=== PATIENT | male | born 1985 | race Hispanic/Latino ===

== ENCOUNTER 2017-05-21 15:04 | Observation (INO) | payer OTHER ==
[~2017-05-21] VITALS: Ht 190.5 cm; Wt 115.7 kg
--- NOTE | 2017-05-21 16:22 | ED GI/GU/ABDOMINAL COMPLAINT ---
History of Present Illness General Chief Complaint: Abdominal Pain/Flank Pain Stated Complaint: LWR ABD PAIN SINCE LAST NIGHT Source: patient Exam Limitations: no limitations Vital Signs & Intake/Output Vital Signs & Intake/Output Vital Signs Date Time Temp Pulse Resp B/P B/P Pulse O2 O2 Flow FiO2 Mean Ox Delivery Rate 05/22 0651 98.4 72 18 122/70 95 Room Air 05/22 0300 97.9 74 18 122/70 94 Room Air 05/22 0100 98.4 78 18 120/60 95 Room Air 05/21 2300 98.2 67 18 138/84 97 Room Air 05/21 2045 98.1 76 16 142/80 98 Room Air Room Air ED Intake and Output 05/22 0000 05/21 1200 Intake Total 3000 Output Total Balance 3000 Intake, IV 3000 Patient 255 lb Weight Weight Reported by Patient Measurement Method Allergies Coded Allergies: No Known Allergies (05/21/17) Triage Note: PT STATES HE BEGAN TO HAVE SHARP PAIN IN HIS LOWER RIGHT ABD SINCE LAST AL. AND IT HAS NOT GONE AWAY. PT STATES HE MOVED HIS BOWELS YESTERADAY ABD HE HASN'T GONE YET TODAY. PT STATE HE DID HAVE THE CHILLS LAST EVENING AND TODAY HE HASN'T EATEN ANYTHING. Triage Nurses Notes Reviewed? yes Onset: Gradual Duration: day(s): Timing: recent history Quality/Severity: moderate, sharpness Location: right lower quadrant HPI: 31-year-old male presents emergency department complaining of right lower quadrant abdominal pain. Patient states that yesterday he had periumbilical abdominal pain described as crampy. Today pain feels sharp or, more severe, located in right lower quadrant. Patient states his last bowel movement was 3 days ago. Patient reports anorexia. Patient denies previous surgeries, diarrhea, nausea, vomiting, fevers, chills, urinary symptoms. (Aleksandra WISE,Alexia Pierre) Reconcile Medications Oxycodone HCl/Acetaminophen (Percocet 5-325 MG Tablet) 5 MG-325 MG TABLET 1-2 TAB PO 4 TIMES/DAY PRN pain (Puja PETERSEN,Kyle Huerta) Past History Travel History Traveled to [place] past 21 day No Medical History Any Pertinent Medical History? none Surgical History Surgical History: none Psychosocial History What is your primary language Mongolian Tobacco Use: Never used ETOH Use: occasional use Illicit Drug Use: denies illicit drug use Family History Hx Contributory? No (Alexia Kincaid) Review of Systems Review of Systems Constitutional: Reports: no symptoms. EENTM: Reports: no symptoms. Respiratory: Reports: no symptoms. Cardiovascular: Reports: no symptoms. GI: Reports: see HPI. Genitourinary: Reports: no symptoms. Musculoskeletal: Reports: no symptoms. Skin: Reports: no symptoms. Neurological/Psychological: Reports: no symptoms. Hematologic/Endocrine: Reports: no symptoms. Immunologic/Allergic: Reports: no symptoms. All Other Systems: Reviewed and Negative (Aleksandra WISE,Alexia Pierre) Physical Exam Physical Exam General Appearance: well developed/nourished, no apparent distress, alert, awake Head: atraumatic, normal appearance Eyes: Bilateral: normal appearance. Ears, Nose, Throat, Mouth: hearing grossly normal Neck: normal inspection, supple, full range of motion Respiratory: normal breath sounds, no respiratory distress, lungs clear Cardiovascular: regular rate/rhythm Gastrointestinal: normal bowel sounds, soft, no organomegaly, RLQ rebound tenderness with gaurding, +McBurney's point tenderness, +Rosving's sign Back: normal inspection, normal range of motion Extremities: normal range of motion Neurologic/Psych: awake, alert, oriented x 3 Skin: intact, normal color, warm/dry Core Measures ACS in differential dx? No Sepsis Present: No Sepsis Focused Exam Completed? No (Alexia Kincaid) Progress Differential Diagnosis: appendicitis, bowel obstruction, cholecystitis, diverticulitis, gastritis, hepatitis, hernia, inflamm bowel dis, peptic ulcer, SBO Plan of Care: Orders Procedure Date/time Status Regular Diet 05/22 B Active Wound Care/Dressing 05/222 Active Discharge Patient 05/22 UNK Active Clear Liquid Diet 05/21 D Complete Vital Signs 05/21 2306 Active Teach/Educate 05/21 2306 Active Pain Treatment and Response 05/21 2306 Active Nutritional Intake, Monitor 05/21 2306 Active Isolation 05/21 2306 Active Intake & Output 05/21 2306 Active Patient Care Conference 05/21 2306 Active Activity/Ambulation 05/21 2306 Active Pathway - chart 05/[address] in observation 05/21 2202 Active Patient Data 05/21 2202 Active Code Status 05/21 2202 Active PATHOLOGY SPECIMEN 05/21 2130 Complete PARTIAL THROMBOPLASTIN TIME 05/21 2031 Complete PROTHROMBIN TIME 05/21 2031 Complete TYPE & SCREEN (NOT X-MATCH) 05/21 2031 Complete Intake & Output 05/21 1651 Complete VTE Mechanical Prophylaxis 05/21 UNK Active Vital Signs 05/21 UNK Active Nursing Misc 05/21 UNK Active Intake & Output 05/21 UNK Active Activity/Ambulation 05/21 UNK Active Laboratory Tests 05/21/172039: PT 12.7 H, INR 1.21 H, APTT 28 Spoke with radiologist - appendicitis without perforation. The patient was started on second liter of IV fluids, IV Unasyn, pending general surgery consult. Discussed this patient with Dr. Luo. 2020 - Spoke with Dr. Murrell regarding patient. Surgical PA present to see and evaluate patient. Diagnostic Imaging: Viewed by Me: CT Scan. Discussed w/RAD: CT Scan. Radiology Impression: PATIENT: SIS MCDONALD PRESENT AGE: 31 PATIENT ACCOUNT NO: [id number] : 84 LOCATION: [facility] ORDERING PHYSICIAN: Alexia WISE SERVICE DATE: 05/21/17 EXAM TYPE: CAT - CT ABD & PELVIS W IV CONTRAST EXAMINATION: CT ABDOMEN AND PELVIS WITH CONTRAST CLINICAL INFORMATION: Abdominal pain COMPARISON: None TECHNIQUE: Multidetector volumetric imaging was performed of the abdomen and pelvis following IV administration of 94 mL of Optiray 320 intravenous contrast. Sagittal and coronal reformatted images were obtained on the technologist's workstation. DLP: 967.94 mGy-cm FINDINGS: LUNG BASES: There is mild atelectatic changes in the posterior right lung base. The visualized lung bases are otherwise clear. No pleural effusion. LIVER, GALLBLADDER, AND BILIARY TREE: The liver is normal in size, shape, and attenuation. No focal hepatic lesion or biliary ductal dilatation is present. The gallbladder is unremarkable with no evidence of radiopaque gallstones, gallbladder wall thickening, or obvious pericholecystic inflammatory changes. PANCREAS: Unremarkable. SPLEEN: Unremarkable. ADRENAL GLANDS: Unremarkable. KIDNEYS AND URETERS: The kidneys are normal in size, shape , and attenuation. No hydronephrosis, hydroureter, or calculi seen. No perinephric stranding. BLADDER: Unremarkable. GASTROINTESTINAL TRACT: The small and large bowel are unremarkable. The appendix is visualized. The lumen of the appendix is dilated, measures about 1.4 cm in transverse diameter. There are mild inflammatory changes surrounding the appendix. The findings are in favor of acute inflammatory appendicitis. No CT sign of perforation or periappendiceal fluid collection. No free fluid in the abdomen or pelvis. There is an area of mesenteric fat stranding in the anterior right upper quadrant of the abdomen, better seen on axial image 47 from series 2 and sagittal image 96. The findings could represent mesenteritis. ABDOMINAL WALL: No significant hernia is appreciated. LYMPH NODES: Normal. VASCULAR: Unremarkable. PELVIC VISCERA: The prostate and seminal vesicles are unremarkable. OSSEOUS STRUCTURES: Unremarkable. IMPRESSION: Findings of acute inflammatory appendicitis without evidence of perforation or periappendiceal collection. The findings were reported to Alexia Lake at 5:50 PM on 05/21/2017 by myself. DICTATED BY: Micki Minor MD DATE/TIME DICTATED:05/21/171744 SLURRY CONTROL TENDER:[facility] DATE/TIME TRANSCRIBED:05/21/171744 CONFIDENTIAL, DO NOT COPY WITHOUT APPROPRIATE AUTHORIZATION. <Electronically signed in Other Vendor System> SIGNED BY: Micki Minor MD 05/21/17 1801 Initial ED EKG: none (Alexia Kincaid) Departure Departure Disposition: STILL A PATIENT Condition: Stable Clinical Impression Primary Impression: Appendicitis Qualifiers: Appendicitis type: acute appendicitis Acute appendicitis type: with localized peritonitis Qualified Code: K35.3 - Acute appendicitis with localized peritonitis Referrals: Patient Has No Primary Care Dr (PCP/Family) Departure Forms: Customer Survey General Discharge Information OR/GI Note Spoke With: Handy PETERSEN,Javon Alves ED Treatment Decision: SIS MCDONALD requires urgent operative management or an emergent procedure that cannot be performed in the Emergency Room setting. APPENDICITIS Transport To: [facility] (Alxeia Kincaid) Departure Prescriptions: Current Visit Scripts Oxycodone HCl/Acetaminophen (Percocet 5-325 MG Tablet) 1-2 TAB PO 4 TIMES/DAY PRN pain #30 TAB PA/CANARY BREEDER Co-Sign Statement Statement: ED Attending supervision documentation- [X] I saw and evaluated the patient. I have also reviewed all the pertinent lab results and diagnostic results. I agree with the findings and the plan of care as documented in the PA's/CANARY BREEDER's documentation. [X] I have reviewed the ED Record and agree with the PA's/CANARY BREEDER's documentation. [] Additions or exceptions (if any) to the PAs/CANARY BREEDER's note and plan are summarized below: [Periumbilical pain that radiates up to the right lower quadrant. White count as well as high sensitivity CRP. CAT scan consistent with appendicitis.] (Puja PETERSEN,Kyle Huerta)
[2017-05-21 16:48] LABS: ABSOLUTE BASOPHIL COUNT 0.1 /CUMM (0.0-0.2); ABSOLUTE EOSINOPHIL COUNT 0.2 /CUMM (0.0-0.7); ABSOLUTE GRANULOCYTE CT 10.8 /CUMM (1.4-6.5); ABSOLUTE LYMPH COUNT 2.3 /CUMM (1.2-3.4); BASOPHIL % 0.9 % (0.0-2.0); EOSINOPHIL % 1.1 % (0-5); HEMATOCRIT 43.4 % (42-52); MEAN CORPUSCULAR HGB 27.3 PG (27.0-31.0); MEAN CORPUSCULAR VOLUME 82.8 FL (80.0-94.0); MEAN PLATELET VOLUME 8.3 FL (7.4-10.4); PLATELET COUNT 292 /CUMM (130-400); RBC DISTRIBUTION WIDTH 14.2 % (11.5-14.5); RED BLOOD CELL CT 5.24 /CUMM (4.70-6.10); WHITE BLOOD CELL COUNT 14.4 /CUMM (4.8-10.8)
--- NOTE | 2017-05-21 18:01 | CT SCAN REPORT ---
EXAMINATION: CT ABDOMEN AND PELVIS WITH CONTRAST CLINICAL INFORMATION: Abdominal pain COMPARISON: None TECHNIQUE: Multidetector volumetric imaging was performed of the abdomen and pelvis following IV administration of 94 mL of Optiray 320 intravenous contrast. Sagittal and coronal reformatted images were obtained on the technologist's workstation. DLP: 967.94 mGy-cm FINDINGS: LUNG BASES: There is mild atelectatic changes in the posterior right lung base. The visualized lung bases are otherwise clear. No pleural effusion. LIVER, GALLBLADDER, AND BILIARY TREE: The liver is normal in size, shape, and attenuation. No focal hepatic lesion or biliary ductal dilatation is present. The gallbladder is unremarkable with no evidence of radiopaque gallstones, gallbladder wall thickening, or obvious pericholecystic inflammatory changes. PANCREAS: Unremarkable. SPLEEN: Unremarkable. ADRENAL GLANDS: Unremarkable. KIDNEYS AND URETERS: The kidneys are normal in size, shape, and attenuation. No hydronephrosis, hydroureter, or calculi seen. No perinephric stranding. BLADDER: Unremarkable. GASTROINTESTINAL TRACT: The small and large bowel are unremarkable. The appendix is visualized. The lumen of the appendix is dilated, measures about 1.4 cm in transverse diameter. There are mild inflammatory changes surrounding the appendix. The findings are in favor of acute inflammatory appendicitis. No CT sign of perforation or periappendiceal fluid collection. No free fluid in the abdomen or pelvis. There is an area of mesenteric fat stranding in the anterior right upper quadrant of the abdomen, better seen on axial image 47 from series 2 and sagittal image 96. The findings could represent mesenteritis. ABDOMINAL WALL: No significant hernia is appreciated. LYMPH NODES: Normal. VASCULAR: Unremarkable. PELVIC VISCERA: The prostate and seminal vesicles are unremarkable. OSSEOUS STRUCTURES: Unremarkable. IMPRESSION: Findings of acute inflammatory appendicitis without evidence of perforation or periappendiceal collection. The findings were reported to Alexia Lake at 5:50 PM on 05/21/2017 by myself.
--- NOTE | 2017-05-21 20:43 | History & Physical Pre-Op ---
Gallo Meek 05/21/172035: General Information and HPI MD Statement: I have seen and personally examined SIS TRUJILLO and documented this H&P. The patient is a 31 year old M who presented with a patient stated chief complaint of abdominal pain []. Source of Information: patient Exam Limitations: no limitations History of Present Illness: Mr. Trujillo is a 31-year-old [employer] room in in [place] who presents with right lower quadrant abdominal pain since yesterday. He states that the pain initially started periumbilical and has now migrated to the right lower quadrant. He denies nausea or vomiting. And has had no change in bowel or bladder or bladder habits. He complains of chills at home but did not take his temperature. He has never had pain like this before and he is generally healthy. CAT scan taken today demonstrates acute appendicitis. Allergies/Medications Allergies: Coded Allergies: No Known Allergies (05/21/17) Home Med list No Known Home Medications Past History Surgical History Pertinent Surgical History: none Past Family/Social History Psychosocial History ETOH Use: occasional use Illicit Drug Use: denies illicit drug use Exam & Diagnostic Data Last 24 Hrs of Vital Signs/I&O Vital Signs Date Time Temp Pulse Resp B/P B/P Pulse O2 O2 Flow FiO2 Mean Ox Delivery Rate 05/21 1653 98 Room Air 05/21 1520 97.6 83 18 141/78 97 Room Air Intake & Output 05/21 1600 05/21 0800 05/21 0000 Intake Total Output Total Balance Patient 255 lb Weight Weight Reported by Patient Measurement Method Physical Exam General Appearance Alert, Oriented X3 HEENT PERRLA Cardiovascular Regular Rate, Normal S1, Normal S2 Lungs Clear to Auscultation, Normal Air Movement Abdomen rlq abd pain to palpation at McBurney's point, +Rovsing's sign. +bs, softly distended. Neurological Strength at 5/5 X4 Ext Extremities No Edema, Normal Pulses Last 24 Hrs of Labs/Maxi: Laboratory Tests 05/21/17 1630: Anion Gap 11, Estimated GFR > 60, BUN/Creatinine Ratio 16.7, Glucose 97, Lactic Acid 1.0, Calcium 9.3, Total Bilirubin 0.3, AST 22, ALT 40, Alkaline Phosphatase 68, C-Reactive Prot, Quant 3.9 H, C-React Prot High Sens > 15.0 H, Total Protein 7.6, Albumin 4.2, Globulin 3.4, Albumin/Globulin Ratio 1.2, CBC w Diff NO MAN DIFF REQ, RBC 5.24, MCV 82.8, MCH 27.3, RDW 14.2, MPV 8.3, Gran % 75.0, Lymphocytes % 16.1 L, Monocytes % 6.9, Eosinophils % 1.1, Basophils % 0.9, Absolute Granulocytes 10.8 H, Absolute Lymphocytes 2.3, Absolute Monocytes 1.0 H, Absolute Eosinophils 0.2, Absolute Basophils 0.1, PUBS MCHC 33.0, ESR Westergren 10 05/21/17 1523: Urine Color YEL, Urine Clarity CLEAR, Urine pH 6.0, Ur Specific Wilsey 1.010, Urine Protein NEG, Urine Ketones NEG, Urine Nitrite NEG, Urine Bilirubin NEG, Urine Urobilinogen 0.2, Ur Leukocyte Esterase NEG, Ur Microscopic EXAM NOT REQUIRED, Urine Hemoglobin NEG, Urine Glucose NEG Diagnostic Data Other Results SERVICE DATE: 05/21/17-1620 EXAM TYPE: CAT - CT ABD & PELVIS W IV CONTRAST EXAMINATION: CT ABDOMEN AND PELVIS WITH CONTRAST CLINICAL INFORMATION: Abdominal pain COMPARISON: None TECHNIQUE: Multidetector volumetric imaging was performed of the abdomen and pelvis following IV administration of 94 mL of Optiray 320 intravenous contrast. Sagittal and coronal reformatted images were obtained on the technologist's workstation. DLP: 967.94 mGy-cm FINDINGS: LUNG BASES: There is mild atelectatic changes in the posterior right lung base. The visualized lung bases are otherwise clear. No pleural effusion. LIVER, GALLBLADDER, AND BILIARY TREE: The liver is normal in size, shape, and attenuation. No focal hepatic lesion or biliary ductal dilatation is present. The gallbladder is unremarkable with no evidence of radiopaque gallstones, gallbladder wall thickening, or obvious pericholecystic inflammatory changes. PANCREAS: Unremarkable. SPLEEN: Unremarkable. ADRENAL GLANDS: Unremarkable. KIDNEYS AND URETERS: The kidneys are normal in size, shape, and attenuation. No hydronephrosis, hydroureter, or calculi seen. No perinephric stranding. BLADDER: Unremarkable. GASTROINTESTINAL TRACT: The small and large bowel are unremarkable. The appendix is visualized. The lumen of the appendix is dilated, measures about 1.4 cm in transverse diameter. There are mild inflammatory changes surrounding the appendix. The findings are in favor of acute inflammatory appendicitis. No CT sign of perforation or periappendiceal fluid collection. No free fluid in the abdomen or pelvis. There is an area of mesenteric fat stranding in the anterior right upper quadrant of the abdomen, better seen on axial image 47 from series 2 and sagittal image 96. The findings could represent mesenteritis. ABDOMINAL WALL: No significant hernia is appreciated. LYMPH NODES: Normal. VASCULAR: Unremarkable. PELVIC VISCERA: The prostate and seminal vesicles are unremarkable. OSSEOUS STRUCTURES: Unremarkable. IMPRESSION: Findings of acute inflammatory appendicitis without evidence of perforation or periappendiceal collection. The findings were reported to Alexia Lake at 5:50 PM on 05/21/2017 by myself. DICTATED BY: Micki Minor MD DATE/TIME DICTATED:05/21/171744 PHYSICIAN LOCUMS URGENT CARE:[facility] DATE/TIME TRANSCRIBED:05/21/171744 Assessment/Plan Assessment/Plan: Mr. Trujillo is a 31-year-old male with sudden onset of periumbilical abdominal pain that has now migrated to the right lower quadrant. CAT scan taken today demonstrates acute appendicitis. After examination in the emergency room with Dr. Murrell it was determined that the patient would require laparoscopic appendectomy to remove his appendix this evening. Plan Unasyn 3 g has been given at 1835 Nothing by mouth now, IV fluids To the operating suite this evening for laparoscopic appendectomy. As Ranked By This Provider Problem List: 1. Appendicitis Javon Murrell MD 05/21/17 2141: Attending MD Review Statement Attending Statement Attending MD Statement: examined this patient, discuss w/resident/PA/GIS MANAGER, reviewed images Attending Assessment/Plan: Agree with above. This is a healthy 31-year-old male who presents with classic progression of symptoms for acute appendicitis. He has focal peritonitis in the right lower quadrant and CT scan confirms the diagnosis. He'll be taken to the operating room for laparoscopic appendectomy. Preoperative broad-spectrum antibiotics were given. Anticipate discharge home in the morning pending intraoperative findings.
--- NOTE | 2017-05-21 20:44 | Admission Core Measures ---
Acute Coronary Syndrome (CM) ACS Core Measures Acute Coronary Syndrome Diagnosis No Congestive Heart Failure (NEW) CHF Core Measures Congestive Heart Failure Diagnosis No Cerebrovascular Accident (NEW) CVA Core Measures CVA/TIA Diagnosis No Venous Thromboembolism VTE Core Kenn[place] (View Protocol) VTE Risk Factors No risk factors No Mechanical VTE Prophylaxis d/t N/A MechProphylax Ordered No VTE Pharm Prophylaxis d/t LowRisk-No Interven Req'd Problem List As ranked by this Provider includes Assessment & Plan 1. Appendicitis HOME MEDS Home Med List No Known Home Medications
[2017-05-21 21:13] LABS: PT 12.7 SEC (9.4-12.5); PTT 28 SEC (25-37)
--- NOTE | 2017-05-21 21:46 | Operative Report ---
Operative/Inv Procedure Report Surgery Date: 05/21/17 Name of Procedure: Laparoscopic appendectomy Pre-Operative Diagnosis: Acute appendicitis Post-Operative Diagnosis: Same Estimated Blood Loss: scant Surgeon/Park Ranger: Handy PETERSEN,Javon Alves/Tristen WISE Anesthesia: general endotracheal tube Specimens: Appendix Operative Indication: See preoperative H&P Operative/Procedure Note Note: After consent patient is brought to the operating room and laid supine. General anesthesia was obtained his abdomen was prepped and draped. Skin above the umbilicus was after local anesthesia a curvilinear incision made sharply. We dissected through subcutaneous tissues tissues bluntly and identified the fascia. It was grasped with Yemi's and a fasciotomy created sharply. The peritoneum was entered sharply and a blunt Rosales port was placed. Pneumoperitoneum was achieved. 2, 5 mm ports were placed in the suprapubic region and left lower quadrant, after local anesthesia was instilled and under direct vision the camera. Patient placed in Trendelenburg and rotated towards the left. The abdomen was explored. Appendix was identified in the right lower quadrant. It was inflamed at the tip and stuck to the anterior abdominal wall. It was peeled off. Peritoneal tissues laterally were taken down with cautery. The base was grasped with a [place] and window in the mesentery developed with a [place] dissector. The mesentery was divided with Endo JORDIN Bartlett load. The base was taken with a reload. The appendix was placed in Endo Catch bag and cinched up. The right lower quadrant and pelvis were then irrigated with normal saline. Hemostasis was adequate. Ports then removed and appendix delivered and passed off the field. The fascia was closed 0 Vicryl suture. Skin incisions closed with 4-0 Vicryl. Steri-Strips and sterile dressing applied. Sponge and needle counts are correct
[2017-05-21 23:00] VITALS: BP 138/84
--- NOTE | 2017-05-22 00:29 | PN- General Surgery ---
See Addendum Subjective Subjective: poc s/p lap appy sitting up in bed eating arabic ice no major complaints at this time Objective Vital Signs and I&Os Vital Signs Date Time Temp Pulse Resp B/P B/P Pulse O2 O2 Flow FiO2 Mean Ox Delivery Rate 05/21 2300 98.2 67 18 138/84 97 Room Air 05/21 2045 98.1 76 16 142/80 98 Room Air Room Air 05/21 1653 98 Room Air 05/21 1520 97.6 83 18 141/78 97 Room Air Intake & Output 05/22 0800 05/22 0000 05/21 1600 05/21 0800 05/21 0000 05/20 1600 Intake Total 3000 Output Total Balance 3000 Intake, IV 3000 Patient 255 lb 255 lb Weight Weight Reported by Patient Measurement Method Physical Exam: cv: rrr lungs: clear abd: softly distended drsg dry +bs, no guarding to palp ext: warm, distal cms intact Assessment/Plan Assessment/Plan surgical stable plan advance diet in am alps for dvt prophylaxis may be oob 23hr obs. Core Measures Venous Thromboembolism VTE Risk Factors No risk factors No Mechanical VTE Prophylaxis d/t N/A MechProphylax Ordered No VTE Pharm Prophylaxis d/t LowRisk-No Interven Req'd
--- NOTE | 2017-05-22 00:32 | Patient Discharge Instructions ---
Discharge Instructions General Discharge Information You were seen/treated for: acute appendicitis You had these procedures: laparoscopic appendectomy Watch for these problems: temp>101.5, increased wound drainage/redness nausea, vomiting, fever No bath, but you may shower: Yes Other wound care: keep wounds clean and dry Special Instructions: take pain meds as needed. motrin or tylenol, percocet for severe pain. Diet Continue normal diet: Yes Recommended Diet: Regular Activity Full Activity/No Limits: No Activity Self Limited: Yes Pounds, do NOT lift more than: 15 Activity Limited to: Weight bear as tolerated Other activity limits: no strenuous activity Acute Coronary Syndrome Inclusion Criteria At DC or during hospital stay patient has or had the following: ACS DIAGNOSIS No Discharge Core Measures Meds if any: Prescribed or Continued at Discharge Meds if any: NOT Prescribed or Continued at Discharge Congestive Heart Failure Inclusion Criteria At DC or during hospital stay patient has or had the following: CHF DIAGNOSIS No Discharge Core Measures Meds if any: Prescribed or Continued at Discharge Meds if any: NOT Prescribed or Continued at Discharge Cerebrovascular accident Inclusion Criteria At DC or during hospital stay patient has or had the following: CVA/TIA Diagnosis No Discharge Core Measures Meds if any: Prescribed or Continued at Discharge Meds if any: NOT Prescribed or Continued at Discharge Venous thromboembolism Inclusion Criteria VTE Diagnosis No VTE Type NONE VTE Confirmed by (Test) NONE Discharge Core Measures - Per Current guidelines, there needs to be overlap - treatment for the first 5 days of Warfarin therapy. - If discharged on Warfarin prior to 5 days of - overlap therapy, the patient will need to be - assessed for post discharge needs including - *Post discharge parental anticoagulation - *Warfarin and/or parental anticoagulation education - *Follow up date to check INR post discharge At least 5 days overlap therapy as Inpatient No Meds if any: Prescribed or Continued at Discharge Note: Overlap Therapy is Warfarin and Anticoagulant Meds if any: NOT Prescribed or Continued at Discharge
[2017-05-22 01:00] VITALS: BP 120/60
[2017-05-22 03:00] VITALS: BP 122/70
[2017-05-22 06:51] VITALS: BP 122/70
[2017-05-22] MEDS ORDERED: PERCOCET 5-3251 EACH PO (07:08)
--- NOTE | 2017-05-22 07:12 | PN- General Surgery ---
Subjective Subjective: Patient with mild to moderate pain, increased with palpation of the abdomen. No nausea no vomiting no fever, overall he is feeling okay Objective Vital Signs and I&Os Vital Signs Date Time Temp Pulse Resp B/P B/P Pulse O2 O2 Flow FiO2 Mean Ox Delivery Rate 05/22 0651 98.4 72 18 122/70 95 Room Air 05/22 0300 97.9 74 18 122/70 94 Room Air 05/22 0100 98.4 78 18 120/60 95 Room Air 05/21 2300 98.2 67 18 138/84 97 Room Air 05/21 2045 98.1 76 16 142/80 98 Room Air Room Air 05/21 1653 98 Room Air 05/21 1520 97.6 83 18 141/78 97 Room Air Intake & Output 05/22 0800 05/22 0000 05/21 1600 05/21 0800 05/21 0000 05/20 1600 Intake Total 1080 3000 Output Total Balance 1080 3000 Intake, IV 600 3000 Intake, Oral 480 Patient 255 lb 255 lb Weight Weight Reported by Patient Measurement Method Physical Exam: Well-developed well-nourished no apparent distress. HEENT: Atraumatic, extraocular motion intact Neck: Supple, no lymphadenopathy Respiratory: No respiratory distress Abdomen: Incisions are clean dry and intact, abdomen is nondistended, appropriate tenderness in the right upper quadrant and right lower quadrant. No tympany. Extremities: No edema, no calf pain Neuro: Alert and oriented x3 Psych: Mood affect normal, normal memory normal judgment. Skin: Warm and dry, no rash on exposed skin Assessment/Plan Assessment/Plan Postop day 1 status post laparoscopic appendectomy Patient in observation for pain management and need for further evaluation postoperatively. He is doing well, if he tolerates a regular diet this morning and his pain is controlled with by mouth Percocet, he may be discharged home later today. Discussed follow-up care with patient. Tolerating clears, urinating adequate amounts, DC IV fluids, OOB Core Measures Venous Thromboembolism VTE Risk Factors No risk factors No Mechanical VTE Prophylaxis d/t N/A MechProphylax Ordered No VTE Pharm Prophylaxis d/t LowRisk-No Interven Req'd
== END 2017-05-22 09:51 ==
LOC: ERH 15:04 → PACUH 21:10 → ENRESERV 21:36 → ENTRNSPT 22:36 → EDTRNSPTSTS 22:38 → CMPTRNSPT 22:48 → 2NA 22:51 → ENPENDDIS 05-22 07:08 → 2NA 05-22 09:51
PROVIDERS: Physician Assistant
DX: K35.80 Unspecified acute appendicitis (principal); R10.31 Right lower quadrant pain
CPT/HCPCS: 6040; 74177; 81003; 88304; 96374; 96375; 96376; 99291; C9399; G0378; J0131; J0690; J1100; J1170; J2250; J2405; J3010